=== PATIENT | male | born 1955 | race Caucasian/White ===

== ENCOUNTER → 2016-12-13 | Outpatient (CLI) | payer BC ==
[~2016-12-13] MED LIST: CPR500 PO; CZR50 PO; DXY100 PO; LRT5 PO; PRLSRUNK PO; SENN-65 PO; SERT-234 PO
--- NOTE | 2016-12-13 14:40 | DIAGNOSTIC IMAGING REPORT ---
KUB CLINICAL HISTORY: N40.1 BPH (benign prostatic hypertrophy) with urinary obstruction COMPARISON STUDY: 12/27/2015 FINDINGS: There is no pathologic bowel dilatation. There are no calcifications suspicious for renal calculi. There is a minor thoracolumbar spinal curvature convex to the left. There are nonspecific pelvic basin calcifications likely representing phleboliths. IMPRESSION: No evidence of pathologic bowel dilatation. No urinary tract calculi identified. Electronically signed by: Shoaib Will M.D. 12/13/2016 2:38 PM Dictated Date/Time: 12/13/2016 12:07 PM
== END | disposition home or self-care (01) ==
LOC: C.RAD 11:48
PROVIDERS: ATTEND Urology
DX: N40.1 Benign prostatic hyperplasia with lower urinary tract symptoms (principal)

== ENCOUNTER → 2016-12-25 | Outpatient (CLI) | payer BC ==
[2016-12-25 15:01] LABS: BLOOD UREA NITROGEN 16 mg/dl (7-18); BUN/CREATININE RATIO 16.7 (10-20); CREATININE 0.95 mg/dl (0.60-1.40)
== END | disposition home or self-care (01) ==
LOC: C.LAB 13:02
PROVIDERS: ATTEND Urology
DX: R10.9 Unspecified abdominal pain (principal); N40.1 Benign prostatic hyperplasia with lower urinary tract symptoms

== ENCOUNTER → 2017-01-01 | Outpatient (CLI) | payer BC ==
[~2017-01-01] MED LIST changes: +OPTIRAY 300 IV PRN
--- NOTE | 2017-01-01 14:52 | DIAGNOSTIC IMAGING REPORT ---
IVP W/OR W/O TOMOGRAMS CLINICAL HISTORY: N20.0 [id number] Right flank [id number] COMPARISON STUDY: KUB 12/13/2016. FINDINGS: [employer] image shows no renal, ureteral, or bladder calculi. Following the intravenous administration of contrast there is prompt and symmetric perfusion of the kidneys. The kidneys are normal in size and shape. No hydronephrosis. Small focal filling defect seen within the right upper pole infundibulum which persist throughout the examination. No suspicious filling defects seen within the left renal collecting system, ureters, or bladder. The ureters are normal in course and caliber. Trace postvoid residual. IMPRESSION: 1. No renal or ureteral stones. No hydronephrosis. 2. Small focal filling defect seen within the right upper pole infundibulum which persists throughout the examination. This may be due to a crossing vessel. However, recommend dedicated abdomen and pelvis CT urogram for further evaluation. Electronically signed by: Jey Sparks M.D. 01/01/2017 2:50 PM Dictated Date/Time: 01/01/2017 2:43 PM
== END | disposition home or self-care (01) ==
LOC: C.RAD 12:44
PROVIDERS: ATTEND Urology
DX: N20.0 Calculus of kidney (principal); R10.9 Unspecified abdominal pain

== ENCOUNTER → 2017-01-03 | Outpatient (CLI) | payer BC ==
[~2017-01-03] MED LIST changes: -OPTIRAY 300 IV PRN
== END | disposition home or self-care (01) ==
LOC: C.LABSPEC 10:43
PROVIDERS: ATTEND Nurse Practitioner Family
DX: R31.29 Other microscopic hematuria (principal); R10.9 Unspecified abdominal pain

== ENCOUNTER → 2017-01-04 | Outpatient (CLI) | payer BC ==
--- NOTE | 2017-01-04 14:33 | DIAGNOSTIC IMAGING REPORT ---
ABDOMEN AND PELVIS CT WITH AND WITHOUT IV CONTRAST, UROGRAM PROTOCOL CT DOSE: 1998.68 mGycm HISTORY: RIGHT FLANK PAIN, HEMATURIA, abnormal IVP. TECHNIQUE: Multiaxial CT images of the abdomen and pelvis were performed both before and after the use of intravenous contrast to evaluate the urinary system. Maximal intensity projection images were performed at the workstation by the radiologist. A dose lowering technique was utilized adhering to the principles of ALARA. COMPARISON STUDY: IVP 01/01/2017. Abdomen and pelvis CT 08/26/2014. FINDINGS: No renal or ureteral calculi. No hydronephrosis. No suspicious filling defects seen within the bilateral renal collecting systems, ureters, or bladder. The filling defect seen within the upper pole of the right kidney on the recent IVP appears to be secondary to a crossing vessel. A 6 mm hypodense lesion within the lower pole the left kidney has slightly increased in size from 5 mm. This is too small to characterize but favors a cyst. The lung bases are clear. The liver, spleen, gallbladder, pancreas, and adrenal glands are within normal limits. No bowel wall thickening or obstruction. The pelvic organs are unremarkable. No suspicious lytic or blastic osseous lesions. 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 This measures 2.6 cm in length. Small fat-containing hiatal hernia. Evidence for prior right inguinal hernia repair. Normal appendix. IMPRESSION: 1. No renal or ureteral stones. No hydronephrosis. 2. No suspicious filling defects seen within the opacified bilateral renal collecting systems, ureters, or bladder. The filling defect within the right kidney seen on the prior IVP appears to be secondary to extrinsic compression from a crossing vessel. 3. 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 Interventional/vascular consultation should be considered. Electronically signed by: Jey Sparks M.D. 01/04/2017 2:32 PM Dictated Date/Time: 01/04/2017 2:19 PM
== END | disposition home or self-care (01) ==
LOC: C.CTS 13:32
PROVIDERS: ATTEND Nurse Practitioner Family
DX: R31.29 Other microscopic hematuria (principal); R10.9 Unspecified abdominal pain

== ENCOUNTER → 2017-12-03 | Outpatient (CLI) | payer BC ==
--- NOTE | 2017-12-04 06:05 | PAP/PSG TECHNICIAN REPORT ---
[facility] [employer] Polysomnogram Report Study name: None Report date: 12/04/2017 Study date: 12/03/2017 Referring Physician: DR. LETITIA PAUL Name: GEMMA BARAHONA Interpreting Physician: Piedad Hicks M.D. Date of : 1955 [employer] Operator [employer] Driver: Diana Blanton, PSGT. Sex: Male Age: 62 StudyType: PSG Weight: 223 lbs Height: 62 years, Height 5' 11.5" BMI: 30.67 Medications: Cchjuh23 mg, Claritin 10 mg, Flonase 50 mcg, Indocin 25 mg, Bentyl 10 mg, Zocor 10 mg, Prilosec 20 mg, Cozaar 25 mg, Zoloft 100 mg, Doxycycline 50 mg, Topamax 50 mg, Flomax 0.4 mg, Melatonin 3 mg. Patient History 68-year-old male presents for a titration sleep study, he has been a a pressure of 11 cm since 2004. Patient is now stating that he has some daytime hypersomulence.Starting pressure for this study was ordered at 7 cm h2o.Patient has a full face mask with him for his study tonight. Ess = 15. Parameters Monitored NPSG: E1-M2, E2-M1, Fp1-M2, Fp2-M1, F3-M2, F4-M2, F4-M1, C3-M2, C4-M2, C4-M1, O1-M2, O2-M2, O2-M1, T3-M2, T4-M1, P3-M2, P4-M1, CHIN1, CHIN2, HR, EKG, Legs, PFLOW, SNOR, FLOW, CFLOW, Tidal Volume, THOR, ABDO, SpO2, PLTH, CPRESS, ETCO2 Wave, ETCO2, pH Sleep Architecture Sleep Stages Time at Lights Off 9:31:39 PM STAGES Time (min.) TST (%) Time at Lights On 5:24:39 AM Wake 20.5 -- Total Recording Time (TRT) 474.00 min. N1 6.5 1 Total Sleep Period (TSP) 454.0 min. N2 325.5 72 Total Sleep Time (TST) 452.5min. N3 0.0 0 Awake Time 20.5 min. REM 120.5 27 Wake after Sleep Onset 1.5 min. Sleep Efficiency (SE) 96 % Sleep Onset Latency (MINI) 19.0 min. Number of Stage 1 Shifts None Awakenings 2 Stage Changes 15 Number of REM periods 4 REM 120.5 27 REM Latency 114.0 min. NREM 332.0 73 Body Position Analysis Supine Right Left Side Prone Vertical Total Sleep Time (min.) 101.3 241.6 117.9 359.50 0.0 0.0 Total Sleep Time (%) 21% 53% 26% 79 0% N/A% Total Sleep Time REM (min.) 35.1 85.4 0.0 None 0.0 0.0 Total Sleep Time NREM (min.) 57.9 156.2 117.9 None 0.0 0.0 Intermittent Wake (min.) 8.3 0.0 12.2 None 0.0 0.0 Total Sleep Period (%) 21% None None None None None Arousals Myoclonus (PLM) * Events Count Index Events Count Index Spontaneous 36 5 Events Awake (PLMW) 1 2.9 Respiratory 1 0.1 Events Asleep w/ Arousal (PLMA) 6 0.8 PLM 6 1 Events Asleep w/o Arousal (PLMS) 90 11.9 Snoring 6 1 Total Asleep 96 12.7 Total 49 6 Total 97 12 Respiratory Analysis * CA OA MA CH H RERA Total Count 0 1 0 0 1 0 2 Index 0.0 0.1 0.0 0 0.1 0 0.3 Mean Duration 0.0 16.2 0.0 0.00 44.0 0.0 30.1 Longest Duration 0.0 16.2 0.0 0.00 0.0 0.0 44.0 Respiratory Event Summary Total Supine ~Supine Right Left Prone REM NREM Apneas Count 1 1 0 0 0 N/A 0 1 Index 0.1 1 0 0.0 0.0 N/A 0 0 Hypopneas (4% Desat) Count 1 1 0 0 0 N/A 1 0 Index 0.1 0.6 0 0.0 0.0 N/A 0.5 0.0 Apneas & All Hypopneas Count 2 2 0 0 0 N/A 1 1 Index 0.3 1 0 0 0 N/A 0.5 0.2 Respiratory Events ([employer] Supervisor+All Hyp+RERA) Count 2 2 0 0 0 N/A 1 1 Index 0.3 1 0 0.0 0.0 N/A 0.5 0.2 Respiratory Related Arousal Count 1 2 0 0 0 N/A 0 1 Index 0.1 1 0 0 0 N/A 0 0 Snoring Analysis Supine Right Left Prone REM NREM Total Snore duration 8.1 min Snores count 260 216 5 N/A 17 464 481 Snore mean duration 1.0 Sec Snores index 168 54 3 N/A 8.5 83.9 63.8 TST with snoring (%) 1.8% Desaturation Event Summary: Minimum %SpO2 Event Count Mean/Min/Max Duration(sec.) Desaturation Index % Time In Bed > 90 2 19.6 / 19.5 / 19.8 0.3 100.0 86 - 90 0 N/A 0.0 0.0 81 - 85 0 N/A 0.0 0.0 76 - 80 0 N/A 0.0 0.0 71 - 75 0 N/A 0.0 0.0 66 - 70 0 N/A 0.0 0.0 61 - 65 0 N/A 0.0 0.0 56 - 60 0 N/A 0.0 0.0 51 - 55 0 N/A 0.0 0.0 < 50 0 N/A 0.0 0.0 Total REM NREM Awake <50% 0.0 min. 0.0 min. 0.0 min. 0.0 min. 51 - 60% 0.0 min. 0.0 min. 0.0 min. 0.0 min. 61 - 70% 0.0 min. 0.0 min. 0.0 min. 0.0 min. 71 - 80% 0.0 min. 0.0 min. 0.0 min. 0.0 min. 81 - 90% 0.0 min. 0.0 min. 0.0 min. 0.0 min. 91 - 100% 472.4 min. 120.1 min. 331.8 min. 20.5 min. Average 96 96 96 96 Minimum SpO2 91 91 93 92 Desaturation Event Index 0.3 1.0 0.0 0.0 # Desat. Events below 89% N/A N/A N/A N/A Time(%) with Saturation below 89% 0.0 0.0 0.0 0.0 Time(min.) with Saturation below 89% 0.0 0.0 0.0 0.0 Heart Rate Analysis End Tidal CO2 Analysis Min (bpm) Max (bpm) Average (bpm) TSP (mins) % of TSP Awake 59 81 66 Above 55 mmHg 0.0 0.0 NREM 51 127 58 50-55 mmHg 8.9 2.0 REM 51 93 60 45-50 mmHg 443.6 98.0 Overall 51 127 59 40-45 mmHg 0.0 0.0 35-40 mmHg 0.0 0.0 30-35 mmHg 0.0 0.0 Average ETCO2 0.0 Supplemental O2 Values Minimum O2 level: None Value Start Time End Time [employer] Comments PAP Study: Mr. Barahona slept in the right, left, and supine positions. No cardiac arrhythmia or PLM's noted. No bruxism noted. CPAP was initiated at +7CMH2O to an optimal level of +7 CMH2O, which nearly eliminated all respiratory events and snoring. A Res Med Air Fit F 20, was used during titration. Mr. Barahona stated, I did not sleep as well as I do when I am in my own bed. The final report will be interpreted and signed by a sleep physician. The completed physician report will then be placed in the patient medical record. Patient slept well and tolerated c-pap well. His final pressure was 7 cm h20 room air. Therapy Event: Therapy (cm H20) 7 Total Time at Pressure (min.) 473.0 TST at Pressure (min.) 452.5 # Periods 1 Sleep Onset (min.) 19.0 REM Onset (min.) 133.0 Sleep Efficiency % 95 Wakefulness (%) 4.3 Wakefulness (min.) 20.5 NREM 1 (%) 1.4 NREM 1 (min.) 6.5 NREM 2 (%) 68.8 NREM 2 (min.) 325.5 NREM 3 (%) 0.0 NREM 3 (min.) 0.0 REM (%) 25.5 REM (min.) 120.5 # Arousals 49 Arousal Index 6.5 # Snore 481 Snore Index 63.8 AHI 0.3 AHI Supine 1.3 AHI Non-Supine 0.0 NREM AHI 0.2 REM AHI 0.5 RDI 0.3 # Obstructive 1 # Central Ap 0 # Mixed 0 # Hypopneas 1 RERAS 0 Total Respiratory Events 2 Time Below SpO2 89.00% (min.) 0.0 Mean NREM SpO2 (%) 96 Mean REM SpO2 (%) 96 Mean Sleep SpO2 (%) 96 Min NREM SpO2 (%) 93 Min REM SpO2 (%) 91 Position Supine (min.) 93.0 Position Non-supine (min.) 359.5 LM Index Sleep 12.7 LM Index NREM 12.1 LM Index REM 14.4 Mean Heart Rate (bpm) 59 Min Heart Rate (bpm) 51
== END | disposition home or self-care (01) ==
LOC: C.NEUR 21:00
PROVIDERS: ATTEND Internal Medicine
DX: G47.33 Obstructive sleep apnea (adult) (pediatric) (principal); Z99.89 Dependence on other enabling machines and devices; G47.10 Hypersomnia, unspecified